=== PATIENT | female | born 1970 | race Caucasian/White ===

== ENCOUNTER 2020-05-19 14:01 | Observation (INO) ==
[2020-05-19] MEDS ORDERED: *HR* Promethazine 25 MG/ML VIAL IVP PRN (18:50)
[2020-05-19] MEDS ORDERED: Acetaminophen 325 MG TABLET PO PRN (18:50)
[2020-05-19 19:41] LABS: Hemoglobin 11.4 g/dL (11.5-15.4)
[2020-05-19 19:42] LABS: Hematocrit 38.1 % (35.3-44.9); INR 1.3; Mean Corpuscular HGB Conc 29.9 g/dL (31.6-35.5); Mean Corpuscular Volume 83.6 fL (83.0-100.0); Mean Platelet Volume 9.3 fL (9.4-12.4); Platelet Count 192 K/mcL (140-400); Prothrombin Time 14.6 Seconds (9.4-12.1); Red Blood Count 4.56 M/mcL (3.82-4.97); Red Cell Distribution Width 17.1 % (11.5-14.5)
[2020-05-19 19:57] LABS: BUN/Creatinine Ratio 17 (6-26); Blood Urea Nitrogen 12 mg/dL (6-20); Calcium 8.9 mg/dL (8.6-10.3); Carbon Dioxide 29 mEq/L (23-29); Chloride 105 mEq/L (98-107); Glucose 134 mg/dL (70-105); Osmolality,Calculated 298 (280-300); Potassium 3.9 mEq/L (3.5-5.1); Sodium 143 mEq/L (136-145); eGFR For African Americans > 60 (> 60); eGFR For Non-African Americans > 60 (> 60)
[2020-05-19] MEDS: Ipratropium/Albuterol Neb 3 ML IH SCH (20:05)
[2020-05-19] MEDS ORDERED: Perflutren Lipid Microsphere 1.3 ML in 0.9 % Sodium Chloride 8.7 ML IVP PRN (20:42)
[2020-05-19] MEDS ORDERED: Ipratropium/Albuterol Neb 3 ML IH PRN (20:51)
[2020-05-19] MEDS ORDERED: diazePAM 10 MG TABLET PO ONE (21:32)
[2020-05-19] MEDS ORDERED: *HR* OxyCODONE/APAP 10/325 TABLET PO ONE (21:32)
[2020-05-19] MEDS: lamoTRIgine 100 MG TABLET PO SCH (21:49)
[2020-05-19] MEDS: lisinopriL 20 MG TABLET PO SCH (21:49)
[2020-05-19] MEDS: Apixaban 5 MG TABLET PO SCH (21:49)
[2020-05-19] MEDS: DilTIAZem CD (24hr) 180 MG CAP.ER.24H PO SCH (21:50)
[2020-05-19] MEDS: Furosemide 40 MG/4 ML VIAL IVP SCH (21:50)
[2020-05-20] MEDS: Ipratropium/Albuterol Neb 3 ML IH SCH ×8 (00:13→23:50)
[2020-05-20] MEDS: Doxycycline 100 MG in 0.9 % Sodium Chloride Mini Bag 100 ML IVPB SCH ×2 (05:53→17:53)
[2020-05-20 05:59] LABS: Red Cell Distribution Width 16.9 % (11.5-14.5)
[2020-05-20 06:00] LABS: Hematocrit 37.5 % (35.3-44.9); Mean Corpuscular HGB Conc 29.3 g/dL (31.6-35.5); Mean Corpuscular Hemoglobin 24.7 pg (28.0-33.3); Mean Corpuscular Volume 84.3 fL (83.0-100.0); Mean Platelet Volume 9.6 fL (9.4-12.4); Platelet Count 197 K/mcL (140-400); Red Blood Count 4.45 M/mcL (3.82-4.97); White Blood Count 4.4 K/mcL (4.3-11.1)
[2020-05-20 06:25] LABS: BUN/Creatinine Ratio 20 (6-26); Blood Urea Nitrogen 14 mg/dL (6-20); Calcium 8.7 mg/dL (8.6-10.3); Carbon Dioxide 30 mEq/L (23-29); Chloride 104 mEq/L (98-107); Glucose 143 mg/dL (70-105); Osmolality,Calculated 293 (280-300); Potassium 3.8 mEq/L (3.5-5.1); Sodium 140 mEq/L (136-145); eGFR For African Americans > 60 (> 60); eGFR For Non-African Americans > 60 (> 60)
[2020-05-20] MEDS ORDERED: *HR* OxyCODONE/APAP 10/325 TABLET PO ONE (06:48)
[2020-05-20] MEDS ORDERED: diazePAM 5 MG TABLET PO ONE (06:48)
[2020-05-20] MEDS: Furosemide 40 MG/4 ML VIAL IVP SCH ×2 (08:25→21:33)
[2020-05-20] MEDS: MethylPREDNISolone 40 MG/ML VIAL IVP SCH ×2 (08:25)
[2020-05-20] MEDS: Apixaban 5 MG TABLET PO SCH ×2 (08:25→21:33)
[2020-05-20] MEDS: *HR* OxyCODONE/APAP 10/325 TABLET PO SCH ×2 (16:57→21:32)
[2020-05-20] MEDS: diazePAM 5 MG TABLET PO SCH ×2 (16:57→21:32)
[2020-05-20] MEDS ORDERED: diazePAM 10 MG TABLET PO SCH (21:00)
[2020-05-20] MEDS: lamoTRIgine 100 MG TABLET PO SCH (21:32)
[2020-05-20] MEDS: DilTIAZem CD (24hr) 180 MG CAP.ER.24H PO SCH (21:32)
[2020-05-20] MEDS: lisinopriL 20 MG TABLET PO SCH (21:33)
[2020-05-21] MEDS: Ipratropium/Albuterol Neb 3 ML IH SCH ×3 (03:44→11:20)
[2020-05-21 05:54] LABS: Hemoglobin 11.1 g/dL (11.5-15.4); Immature Granulocytes % 0.6 % (0-4)
[2020-05-21 05:55] LABS: Basophils % 0.2 %; Hematocrit 40.1 % (35.3-44.9); Lymphocytes # 2.2 K/mcL (0.6-4.6); Lymphocytes % 21.8 %; Mean Corpuscular HGB Conc 27.7 g/dL (31.6-35.5); Mean Corpuscular Hemoglobin 24.1 pg (28.0-33.3); Mean Corpuscular Volume 87.2 fL (83.0-100.0); Mean Platelet Volume 9.1 fL (9.4-12.4); Monocytes % 9.9 %; Neutrophils # 6.7 K/mcL (1.6-8.9); Platelet Count 226 K/mcL (140-400); Red Cell Distribution Width 17.2 % (11.5-14.5); Segmented Neutrophils % 67.5 %; White Blood Count 9.9 K/mcL (4.3-11.1)
[2020-05-21] MEDS: Doxycycline 100 MG in 0.9 % Sodium Chloride Mini Bag 100 ML IVPB SCH (05:56)
[2020-05-21 06:08] LABS: BUN/Creatinine Ratio 24 (6-26); Blood Urea Nitrogen 20 mg/dL (6-20); Calcium 8.9 mg/dL (8.6-10.3); Carbon Dioxide 34 mEq/L (23-29); Chloride 103 mEq/L (98-107); Glucose 113 mg/dL (70-105); Osmolality,Calculated 295 (280-300); Potassium 3.4 mEq/L (3.5-5.1); Sodium 141 mEq/L (136-145); eGFR For African Americans > 60 (> 60); eGFR For Non-African Americans > 60 (> 60)
[2020-05-21 07:18] VITALS: BP 127/89
[2020-05-21] MEDS: Furosemide 40 MG/4 ML VIAL IVP SCH (07:35)
[2020-05-21] MEDS: *HR* OxyCODONE/APAP 10/325 TABLET PO SCH ×2 (07:36→12:34)
[2020-05-21] MEDS: diazePAM 5 MG TABLET PO SCH ×3 (07:37→12:35)
[2020-05-21] MEDS: Apixaban 5 MG TABLET PO SCH (07:37)
[2020-05-21 08:07] LABS: Anisocytosis 1+ (Not Present); Hypochromasia Present (Not Present); Platelet Estimate Normal (Normal)
[2020-05-21] MEDS ORDERED: Folic Acid 1 MG TABLET PO SCH (09:00)
[2020-05-21] MEDS ORDERED: DILTIAZEM HCL 360 MG PO SCH (09:00)
[2020-05-21] MEDS ORDERED: Cyanocobalamin (B-12) 1,000 MCG TABLET PO SCH (09:00)
[2020-05-21] MEDS ORDERED: lamoTRIgine 100 MG TABLET PO SCH (09:00)
[2020-05-21] MEDS ORDERED: MethylPREDNISolone 40 MG/ML VIAL IVP SCH (09:00)
[2020-05-21] MEDS ORDERED: NON-FORMULARY MEDICATION 1 EACH EACH (Lisinopril [Zestril] 40 MG) PO SCH (09:00)
[2020-05-21] MEDS ORDERED: NON-FORMULARY MEDICATION 1 EACH EACH (Tiotropium Bromide [Spiriva Respimat] 1 PUFF) IH SCH (09:00)
[2020-05-21] MEDS ORDERED: *HR* Metoprolol 5 MG/5 ML VIAL IVP ONE (09:21)
[2020-05-21] MEDS ORDERED: Budesonide/Formoterol 160/4.5 1 PUFF INH IH SCH (10:00)
[2020-05-21] MEDS ORDERED: Potassium Chloride Elixir 20 MEQ/15 ML UDC PO ONE (10:15)
== END 2020-05-21 13:25 | disposition home or self-care (01) ==
LOC: CDU → SUATTDRO 16:02 → 3ANU 18:00
PROVIDERS: ADMIT Internal Medicine; ATTEND Internal Medicine

== ENCOUNTER 2021-03-21 13:32 | Observation (INO) ==
[2021-03-21] MEDS ORDERED: Ipratropium/Albuterol Neb 3 ML IH ONE (13:39)
[2021-03-21] MEDS ORDERED: methylPREDNISolone 125 MG/2 ML VIAL IVP ONE (13:39)
[2021-03-21] MEDS ORDERED: Furosemide 40 MG/4 ML VIAL IVP ONE (14:19)
[2021-03-21 14:32] LABS: Hemoglobin 10.2 g/dL (11.5-15.4); Mean Corpuscular HGB Conc 28.3 g/dL (31.6-35.5); Mean Platelet Volume 9.1 fL (9.4-12.4)
[2021-03-21 14:33] LABS: Eosinophils # 0.1 K/mcL (0.0-0.6); Mean Corpuscular Hemoglobin 23.6 pg (28.0-33.3); Mean Corpuscular Volume 83.3 fL (83.0-100.0); Neutrophils # 3.8 K/mcL (1.6-8.9); Platelet Count 185 K/mcL (140-400); Red Blood Count 4.32 M/mcL (3.82-4.97); Red Cell Distribution Width 17.3 % (11.5-14.5); White Blood Count 5.8 K/mcL (4.3-11.1)
[2021-03-21 14:50] LABS: Basophils # 0.1 K/mcL (0.0-0.2); Lymphocytes # 1.4 K/mcL (0.6-4.6); Monocytes # 0.5 K/mcL (0.0-1.3); Platelet Estimate Normal (Normal)
[2021-03-21 14:52] LABS: Anisocytosis 1+ (Not Present)
[2021-03-21 14:54] LABS: BUN/Creatinine Ratio 11 (6-26); Blood Urea Nitrogen 6 mg/dL (6-20); Calcium 8.8 mg/dL (8.6-10.3); Carbon Dioxide 35 mEq/L (23-29); Chloride 102 mEq/L (98-107); Glucose 98 mg/dL (70-105); Osmolality,Calculated 290 (280-300); Potassium 4.1 mEq/L (3.5-5.1); Sodium 141 mEq/L (136-145); eGFR For African Americans > 60 (> 60); eGFR For Non-African Americans > 60 (> 60)
[2021-03-21 15:31] LABS: Troponin I < 0.03 ng/mL (< 0.04)
[2021-03-21] MEDS ORDERED: Ondansetron 4 MG/2 ML VIAL IVP PRN (15:48)
[2021-03-21] MEDS ORDERED: Naloxone 0.4 MG/ML INJ IVP PRN (15:48)
[2021-03-21] MEDS ORDERED: Azithromycin 500 MG in 0.9 % Sodium Chloride 250 ML IVPB SCH (16:00)
[2021-03-21] MEDS: Ipratropium/Albuterol Neb 3 ML IH SCH ×3 (16:34→23:55)
[2021-03-21 16:43] LABS: ABG Base Excess 8 mEq/L (-2 to 3); ABG HCO3 37 mEq/L (21-27); ABG Oxygen Saturation 88 % (95-98); ABG PCO2 70 mmHg (35-45); ABG PH 7.33 pH Units (7.32-7.45); ABG PO2 61 mmHg (85-104); ABG TCO2 39 mEq/L (20-26)
[2021-03-21] MEDS: MethylPREDNISolone 40 MG/ML VIAL IVP SCH (18:10)
[2021-03-21] MEDS: Budesonide/Formoterol 160/4.5 1 PUFF INH IH SCH (19:57)
[2021-03-21] MEDS: Apixaban 5 MG TABLET PO SCH (21:31)
[2021-03-21] MEDS: diazePAM 5 MG TABLET PO SCH (21:32)
[2021-03-21] MEDS: Furosemide 40 MG/4 ML VIAL IVP SCH (21:32)
[2021-03-21] MEDS: diazePAM 10 MG TABLET PO SCH (21:32)
[2021-03-21] MEDS ORDERED: *HR* OxyCODONE/APAP 10/325 TABLET PO PRN (22:03)
[2021-03-22] MEDS: Ipratropium/Albuterol Neb 3 ML IH SCH ×6 (04:58→23:35)
[2021-03-22 06:32] LABS: Hematocrit 33.9 % (35.3-44.9); Immature Granulocytes % 0.5 % (0-4); Lymphocytes # 0.4 K/mcL (0.6-4.6); Lymphocytes % 10.5 %; Mean Corpuscular HGB Conc 29.5 g/dL (31.6-35.5); Mean Corpuscular Hemoglobin 23.8 pg (28.0-33.3); Mean Corpuscular Volume 80.7 fL (83.0-100.0); Mean Platelet Volume 9.4 fL (9.4-12.4); Monocytes # 0.1 K/mcL (0.0-1.3); Monocytes % 2.2 %; Neutrophils # 3.6 K/mcL (1.6-8.9); Platelet Count 170 K/mcL (140-400); Red Cell Distribution Width 17.2 % (11.5-14.5); Segmented Neutrophils % 86.8 %; White Blood Count 4.1 K/mcL (4.3-11.1)
[2021-03-22 06:38] LABS: INR 1.4
[2021-03-22 06:39] LABS: Activated Partial Thrombo Time 33.4 Seconds (26.0-36.0)
[2021-03-22 06:46] LABS: BUN/Creatinine Ratio 19 (6-26); Blood Urea Nitrogen 11 mg/dL (6-20); Calcium 8.7 mg/dL (8.6-10.3); Carbon Dioxide 36 mEq/L (23-29); Chloride 99 mEq/L (98-107); Glucose 136 mg/dL (70-105); Magnesium 2.1 mg/dL (1.6-2.6); Osmolality,Calculated 291 (280-300); Phosphorous 3.9 mg/dL (2.7-4.5); Sodium 140 mEq/L (136-145); eGFR For African Americans > 60 (> 60); eGFR For Non-African Americans > 60 (> 60)
[2021-03-22] MEDS: MethylPREDNISolone 40 MG/ML VIAL IVP SCH ×2 (06:54→17:36)
[2021-03-22] MEDS: Budesonide/Formoterol 160/4.5 1 PUFF INH IH SCH ×2 (07:33→20:25)
[2021-03-22] MEDS: DilTIAZem CD (24hr) 180 MG CAP.ER.24H PO SCH (09:12)
[2021-03-22] MEDS: Famotidine 20 MG TABLET PO SCH (09:12)
[2021-03-22] MEDS: Furosemide 40 MG/4 ML VIAL IVP SCH ×2 (09:13→20:34)
[2021-03-22] MEDS: Cyanocobalamin (B-12) 1,000 MCG TABLET PO SCH (09:13)
[2021-03-22] MEDS: Folic Acid 1 MG TABLET PO SCH (09:13)
[2021-03-22] MEDS: lamoTRIgine 100 MG TABLET PO SCH (09:13)
[2021-03-22] MEDS: Apixaban 5 MG TABLET PO SCH ×2 (09:13→20:34)
[2021-03-22] MEDS: diazePAM 5 MG TABLET PO SCH ×3 (09:13→20:34)
[2021-03-22] MEDS ORDERED: *HR* Metoprolol 5 MG/5 ML VIAL IVP ONE (10:22)
[2021-03-22] MEDS ORDERED: *HR* Metoprolol 5 MG/5 ML VIAL IVP PRN (10:22)
[2021-03-22] MEDS: *HR* OxyCODONE/APAP 10/325 TABLET PO PRN ×2 (10:57→17:36)
[2021-03-22] MEDS: Metoprolol XL (24 HR) Succ 50 MG TAB.ER.24H PO SCH ×2 (12:34→20:34)
[2021-03-22 14:59] LABS: Adenovirus Not Detected (Not Detect); Bordetella Pertussis Not Detected (Not Detect); Chlamydophila pneumoniae Not Detected (Not Detect); Coronavirus 229E Not Detected (Not Detect); Coronavirus HKU1 Not Detected (Not Detect); Coronavirus NL63 Not Detected (Not Detect); Coronavirus OC43 Not Detected (Not Detect); Human Metapneumovirus Not Detected (Not Detect); Human Rhinovirus/Enterovirus Not Detected (Not Detect); Influenza A Subtype 2009 H1 Not Detected (Not Detect); Influenza B Not Detected (Not Detect); Mycoplasma pneumoniae Not Detected (Not Detect); Parainfluenza Virus 1 Not Detected (Not Detect); Parainfluenza Virus 2 Not Detected (Not Detect); Parainfluenza Virus 3 Not Detected (Not Detect); Parainfluenza Virus 4 Not Detected (Not Detect); Respiratory Syncytial Virus Not Detected (Not Detect); SARS-CoV-2 Not Detected (Not Detect)
[2021-03-22] MEDS: Azithromycin 250 MG TABLET PO SCH (15:30)
[2021-03-22] MEDS: diazePAM 10 MG TABLET PO SCH (20:33)
[2021-03-23] MEDS: Ipratropium/Albuterol Neb 3 ML IH SCH ×3 (03:05→11:34)
[2021-03-23] MEDS: MethylPREDNISolone 40 MG/ML VIAL IVP SCH (06:04)
[2021-03-23] MEDS: *HR* OxyCODONE/APAP 10/325 TABLET PO PRN ×2 (06:10→15:10)
[2021-03-23] MEDS: Budesonide/Formoterol 160/4.5 1 PUFF INH IH SCH (07:32)
[2021-03-23 07:35] VITALS: BP 122/79; PULSE 96; TEMP 98.6
[2021-03-23 07:50] LABS: Immature Granulocytes % 0.4 % (0-4)
[2021-03-23 07:52] LABS: Hematocrit 33.5 % (35.3-44.9); Hemoglobin 9.8 g/dL (11.5-15.4); Lymphocytes # 0.7 K/mcL (0.6-4.6); Lymphocytes % 12.2 %; Mean Corpuscular HGB Conc 29.3 g/dL (31.6-35.5); Mean Corpuscular Hemoglobin 23.9 pg (28.0-33.3); Mean Corpuscular Volume 81.7 fL (83.0-100.0); Mean Platelet Volume 9.8 fL (9.4-12.4); Monocytes # 0.2 K/mcL (0.0-1.3); Monocytes % 4.3 %; Neutrophils # 4.5 K/mcL (1.6-8.9); Platelet Count 178 K/mcL (140-400); Red Cell Distribution Width 17.1 % (11.5-14.5); Segmented Neutrophils % 83.1 %; White Blood Count 5.4 K/mcL (4.3-11.1)
[2021-03-23 08:06] LABS: BUN/Creatinine Ratio 28 (6-26); Blood Urea Nitrogen 22 mg/dL (6-20); Calcium 9.2 mg/dL (8.6-10.3); Carbon Dioxide 39 mEq/L (23-29); Chloride 96 mEq/L (98-107); Glucose 114 mg/dL (70-105); Magnesium 2.2 mg/dL (1.6-2.6); Osmolality,Calculated 290 (280-300); Potassium 4.2 mEq/L (3.5-5.1); Sodium 138 mEq/L (136-145); eGFR For African Americans > 60 (> 60); eGFR For Non-African Americans > 60 (> 60)
[2021-03-23 08:27] LABS: Hypochromasia Present (Not Present); Platelet Estimate Normal (Normal)
[2021-03-23] MEDS: Famotidine 20 MG TABLET PO SCH (09:41)
[2021-03-23] MEDS: diazePAM 5 MG TABLET PO SCH ×2 (09:41→15:10)
[2021-03-23] MEDS: lamoTRIgine 100 MG TABLET PO SCH (09:41)
[2021-03-23] MEDS: DilTIAZem CD (24hr) 180 MG CAP.ER.24H PO SCH (09:41)
[2021-03-23] MEDS: Folic Acid 1 MG TABLET PO SCH (09:41)
[2021-03-23] MEDS: Metoprolol XL (24 HR) Succ 50 MG TAB.ER.24H PO SCH (09:42)
[2021-03-23] MEDS: Cyanocobalamin (B-12) 1,000 MCG TABLET PO SCH (09:42)
[2021-03-23] MEDS: Apixaban 5 MG TABLET PO SCH (09:42)
[2021-03-23] MEDS: Furosemide 40 MG/4 ML VIAL IVP SCH (09:43)
[2021-03-23 14:50] VITALS: O2SAT 93
[2021-03-23] MEDS: Azithromycin 250 MG TABLET PO SCH (15:10)
== END 2021-03-23 16:30 | disposition home or self-care (01) ==
LOC: 3ANU 13:32 → EMEROOARM 13:32 → SUATTDRO 16:09 → 3ANU 17:03
PROVIDERS: ADMIT Internal Medicine; ATTEND Internal Medicine

== ENCOUNTER 2021-04-05 08:29 | Inpatient (IN) ==
[2021-04-05] MEDS ORDERED: Ipratropium/Albuterol Neb 3 ML IH ONE (09:48)
[2021-04-05] MEDS ORDERED: methylPREDNISolone 125 MG/2 ML VIAL IVP ONE (09:48)
[2021-04-05] MEDS ORDERED: Furosemide 40 MG/4 ML VIAL IVP ONE (10:46)
[2021-04-05 10:53] LABS: Hematocrit 43.3 % (35.3-44.9); Mean Corpuscular Hemoglobin 23.6 pg (28.0-33.3); Mean Corpuscular Volume 85.1 fL (83.0-100.0); Red Blood Count 5.09 M/mcL (3.82-4.97); White Blood Count 13.3 K/mcL (4.3-11.1)
[2021-04-05 10:54] LABS: Basophils % 0.2 %; Eosinophils % 0.1 %; Lymphocytes # 0.4 K/mcL (0.6-4.6); Lymphocytes % 2.8 %; Mean Corpuscular HGB Conc 27.7 g/dL (31.6-35.5); Mean Platelet Volume 8.9 fL (9.4-12.4); Monocytes # 0.9 K/mcL (0.0-1.3); Monocytes % 6.9 %; Neutrophils # 11.8 K/mcL (1.6-8.9); Platelet Count 319 K/mcL (140-400); Red Cell Distribution Width 17.2 % (11.5-14.5)
[2021-04-05 10:54] LABS: ABG Base Excess 8 mEq/L (-2 to 3); ABG HCO3 41 mEq/L (21-27); ABG Oxygen Saturation 85 % (95-98); ABG PCO2 104 mmHg (35-45); ABG PO2 65 mmHg (85-104); ABG TCO2 44 mEq/L (20-26); Blood Gas Modality ST; Blood Gas Pressure Support 6 cm H2O
[2021-04-05 11:02] LABS: INR 1.7; Prothrombin Time 18.9 Seconds (9.4-12.1)
[2021-04-05 11:11] LABS: BUN/Creatinine Ratio 31 (6-26); Blood Urea Nitrogen 19 mg/dL (6-20); Carbon Dioxide 35 mEq/L (23-29); Chloride 101 mEq/L (98-107); Glucose 125 mg/dL (70-105); Osmolality,Calculated 298 (280-300); Potassium 4.3 mEq/L (3.5-5.1); Sodium 142 mEq/L (136-145); eGFR For African Americans > 60 (> 60); eGFR For Non-African Americans > 60 (> 60)
[2021-04-05 11:24] LABS: Adenovirus Not Detected (Not Detect); Bordetella Pertussis Not Detected (Not Detect); Chlamydophila pneumoniae Not Detected (Not Detect); Coronavirus 229E Not Detected (Not Detect); Coronavirus HKU1 Not Detected (Not Detect); Coronavirus NL63 Not Detected (Not Detect); Coronavirus OC43 Not Detected (Not Detect); Human Metapneumovirus Not Detected (Not Detect); Human Rhinovirus/Enterovirus Not Detected (Not Detect); Influenza A Subtype 2009 H1 Not Detected (Not Detect); Influenza B Not Detected (Not Detect); Mycoplasma pneumoniae Not Detected (Not Detect); Parainfluenza Virus 1 Not Detected (Not Detect); Parainfluenza Virus 2 Not Detected (Not Detect); Parainfluenza Virus 3 Not Detected (Not Detect); Parainfluenza Virus 4 Not Detected (Not Detect); Respiratory Syncytial Virus Not Detected (Not Detect); SARS-CoV-2 Not Detected (Not Detect)
[2021-04-05] MEDS ORDERED: Ondansetron 4 MG/2 ML VIAL IVP PRN (12:00)
[2021-04-05] MEDS ORDERED: Naloxone 0.4 MG/ML INJ IVP PRN (12:00)
[2021-04-05] MEDS ORDERED: Perflutren Lipid Microsphere 1.3 ML in 0.9 % Sodium Chloride 8.7 ML IVP PRN (12:05)
[2021-04-05] MEDS: Azithromycin 500 MG in 0.9 % Sodium Chloride 250 ML IVPB SCH (13:52)
[2021-04-05] MEDS: Metoprolol XL (24 HR) Succ 50 MG TAB.ER.24H PO SCH ×2 (13:53→22:18)
[2021-04-05 14:38] LABS: ABG Base Excess 7 mEq/L (-2 to 3); ABG HCO3 36 mEq/L (21-27); ABG Oxygen Saturation 92 % (95-98); ABG PCO2 75 mmHg (35-45); ABG PH 7.29 pH Units (7.32-7.45); ABG PO2 76 mmHg (85-104); ABG TCO2 38 mEq/L (20-26); Blood Gas Modality AVAPS; Blood Gas VT 500 cc
[2021-04-05 14:42] LABS: Anisocytosis 1+ (Not Present); Hypochromasia Present (Not Present); Platelet Estimate Normal (Normal); Poikilocytosis 1+ (Not Present)
[2021-04-05] MEDS: Piperacillin/Tazobactam 3.375 GM in 0.9 % Sodium Chloride Mini Bag 100 ML IVPB SCH (15:24)
[2021-04-05] MEDS: Albuterol 2.5 MG/3 ML NEBULIZER IH SCH ×3 (16:16→23:47)
[2021-04-05] MEDS: Furosemide 40 MG/4 ML VIAL IVP SCH (22:18)
[2021-04-05] MEDS: MethylPREDNISolone 40 MG/ML VIAL IVP SCH (22:19)
[2021-04-05] MEDS: Nystatin POWDER 30 GM BOTTLE TP SCH (22:19)
[2021-04-06] MEDS: Piperacillin/Tazobactam 3.375 GM in 0.9 % Sodium Chloride Mini Bag 100 ML IVPB SCH ×3 (00:51→18:01)
[2021-04-06 03:33] LABS: BUN/Creatinine Ratio 32 (6-26); Blood Urea Nitrogen 19 mg/dL (6-20); Carbon Dioxide 35 mEq/L (23-29); Chloride 100 mEq/L (98-107); Glucose 130 mg/dL (70-105); Osmolality,Calculated 296 (280-300); Potassium 3.8 mEq/L (3.5-5.1); Sodium 141 mEq/L (136-145); eGFR For African Americans > 60 (> 60); eGFR For Non-African Americans > 60 (> 60)
[2021-04-06 03:39] LABS: Basophils % 0.1 %; Hematocrit 39.7 % (35.3-44.9); Hemoglobin 11.2 g/dL (11.5-15.4); Immature Granulocytes % 0.4 % (0-4); Lymphocytes # 0.4 K/mcL (0.6-4.6); Lymphocytes % 5.1 %; Mean Corpuscular HGB Conc 28.2 g/dL (31.6-35.5); Monocytes # 0.3 K/mcL (0.0-1.3); Monocytes % 3.5 %; Platelet Count 218 K/mcL (140-400); Red Blood Count 4.67 M/mcL (3.82-4.97); Red Cell Distribution Width 17.3 % (11.5-14.5); Segmented Neutrophils % 90.9 %; White Blood Count 7.7 K/mcL (4.3-11.1)
[2021-04-06] MEDS: Albuterol 2.5 MG/3 ML NEBULIZER IH SCH ×5 (04:13→20:29)
[2021-04-06 04:28] LABS: ABG Base Excess 10 mEq/L (-2 to 3); ABG HCO3 38 mEq/L (21-27); ABG Oxygen Saturation 97 % (95-98); ABG PCO2 70 mmHg (35-45); ABG PH 7.34 pH Units (7.32-7.45); ABG PO2 103 mmHg (85-104); ABG TCO2 40 mEq/L (20-26); Blood Gas Modality AVAPS; Blood Gas VT 500 cc
[2021-04-06 05:05] LABS: Hypochromasia Present (Not Present); Platelet Estimate Normal (Normal)
[2021-04-06] MEDS: Nystatin POWDER 30 GM BOTTLE TP SCH ×2 (08:46→20:21)
[2021-04-06] MEDS: Nicotine 14 MG PATCH.TD24 TD SCH (08:47)
[2021-04-06] MEDS: Metoprolol XL (24 HR) Succ 50 MG TAB.ER.24H PO SCH ×2 (08:47→20:21)
[2021-04-06] MEDS: MethylPREDNISolone 40 MG/ML VIAL IVP SCH ×2 (10:51→20:21)
[2021-04-06] MEDS: Furosemide 40 MG/4 ML VIAL IVP SCH ×2 (10:53→20:21)
[2021-04-06 11:52] LABS: ABG Base Excess 12 mEq/L (-2 to 3); ABG HCO3 42 mEq/L (21-27); ABG Oxygen Saturation 95 % (95-98); ABG PCO2 86 mmHg (35-45); ABG PO2 89 mmHg (85-104); ABG TCO2 45 mEq/L (20-26); Blood Gas VT 500 cc
[2021-04-06] MEDS: Azithromycin 500 MG in 0.9 % Sodium Chloride 250 ML IVPB SCH (13:26)
[2021-04-06] MEDS: diazePAM 5 MG TABLET PO SCH ×2 (16:24→20:21)
[2021-04-06] MEDS: Erythromycin OPTH Oint BOTH EYES SCH ×2 (16:42→20:21)
[2021-04-06] MEDS: Apixaban 5 MG TABLET PO SCH (20:21)
[2021-04-06] MEDS: Budesonide/Formoterol 160/4.5 1 PUFF INH IH SCH (20:29)
[2021-04-07] MEDS: Albuterol 2.5 MG/3 ML NEBULIZER IH SCH ×7 (00:06→23:41)
[2021-04-07] MEDS: Piperacillin/Tazobactam 3.375 GM in 0.9 % Sodium Chloride Mini Bag 100 ML IVPB SCH (00:42)
[2021-04-07 02:58] LABS: Basophils % 0.2 %; Hematocrit 37.3 % (35.3-44.9); Hemoglobin 10.6 g/dL (11.5-15.4); Immature Granulocytes % 0.5 % (0-4); Lymphocytes # 0.4 K/mcL (0.6-4.6); Lymphocytes % 7.1 %; Mean Corpuscular HGB Conc 28.4 g/dL (31.6-35.5); Mean Corpuscular Hemoglobin 23.3 pg (28.0-33.3); Mean Platelet Volume 9.2 fL (9.4-12.4); Monocytes # 0.2 K/mcL (0.0-1.3); Monocytes % 3.5 %; Neutrophils # 5.4 K/mcL (1.6-8.9); Nucleated Red Blood Cells 0.3 /100 WBC (0); Platelet Count 241 K/mcL (140-400); Red Blood Count 4.55 M/mcL (3.82-4.97); Segmented Neutrophils % 88.7 %; White Blood Count 6.1 K/mcL (4.3-11.1)
[2021-04-07 03:06] LABS: BUN/Creatinine Ratio 40 (6-26); Blood Urea Nitrogen 24 mg/dL (6-20); Carbon Dioxide 38 mEq/L (23-29); Chloride 97 mEq/L (98-107); Glucose 123 mg/dL (70-105); Osmolality,Calculated 301 (280-300); Potassium 3.7 mEq/L (3.5-5.1); Sodium 143 mEq/L (136-145); eGFR For African Americans > 60 (> 60); eGFR For Non-African Americans > 60 (> 60)
[2021-04-07 03:18] LABS: Anisocytosis 1+ (Not Present); Hypochromasia Present (Not Present)
[2021-04-07 03:19] LABS: Polychromasia 1+ (Not Present)
[2021-04-07 03:21] LABS: Platelet Estimate Normal (Normal)
[2021-04-07] MEDS: Budesonide/Formoterol 160/4.5 1 PUFF INH IH SCH ×2 (08:09→20:56)
[2021-04-07] MEDS: MethylPREDNISolone 40 MG/ML VIAL IVP SCH (09:40)
[2021-04-07] MEDS: Furosemide 40 MG/4 ML VIAL IVP SCH ×2 (09:40→20:51)
[2021-04-07] MEDS: Apixaban 5 MG TABLET PO SCH ×2 (09:40→20:51)
[2021-04-07] MEDS: lisinopriL 20 MG TABLET PO SCH (09:41)
[2021-04-07] MEDS: Famotidine 20 MG TABLET PO SCH (09:41)
[2021-04-07] MEDS: Metoprolol XL (24 HR) Succ 50 MG TAB.ER.24H PO SCH ×2 (09:42→20:50)
[2021-04-07] MEDS: diazePAM 5 MG TABLET PO SCH ×3 (09:42→20:50)
[2021-04-07] MEDS: Nicotine 14 MG PATCH.TD24 TD SCH (09:42)
[2021-04-07] MEDS: Nystatin POWDER 30 GM BOTTLE TP SCH ×2 (09:43→20:52)
[2021-04-07] MEDS: Erythromycin OPTH Oint BOTH EYES SCH ×3 (10:25→20:52)
[2021-04-07] MEDS ORDERED: Metoprolol XL (24 HR) Succ 25 MG TAB.ER.24H PO ONE (11:45)
[2021-04-07] MEDS: Azithromycin 500 MG in 0.9 % Sodium Chloride 250 ML IVPB SCH (12:44)
[2021-04-07] MEDS: Acetylcysteine 10% 2 ML INHSOL IH SCH ×3 (12:44→23:41)
[2021-04-07] MEDS: predniSONE 20 MG TABLET PO SCH (16:56)
[2021-04-08] MEDS: Albuterol 2.5 MG/3 ML NEBULIZER IH SCH ×5 (04:12→21:27)
[2021-04-08] MEDS: Acetylcysteine 10% 2 ML INHSOL IH SCH ×4 (04:13→21:27)
[2021-04-08 06:18] LABS: Basophils % 0.2 %; Hematocrit 38.9 % (35.3-44.9); Hemoglobin 11.3 g/dL (11.5-15.4); Immature Granulocytes % 0.5 % (0-4); Lymphocytes # 0.7 K/mcL (0.6-4.6); Lymphocytes % 11.6 %; Mean Corpuscular Hemoglobin 24.1 pg (28.0-33.3); Mean Corpuscular Volume 82.9 fL (83.0-100.0); Mean Platelet Volume 9.3 fL (9.4-12.4); Monocytes # 0.4 K/mcL (0.0-1.3); Monocytes % 6.9 %; Neutrophils # 4.9 K/mcL (1.6-8.9); Platelet Count 243 K/mcL (140-400); Red Blood Count 4.69 M/mcL (3.82-4.97); Red Cell Distribution Width 16.6 % (11.5-14.5); Segmented Neutrophils % 80.8 %; White Blood Count 6.1 K/mcL (4.3-11.1)
[2021-04-08 06:46] LABS: BUN/Creatinine Ratio 43 (6-26); Blood Urea Nitrogen 27 mg/dL (6-20); Calcium 8.9 mg/dL (8.6-10.3); Carbon Dioxide 42 mEq/L (23-29); Chloride 93 mEq/L (98-107); Glucose 111 mg/dL (70-105); Osmolality,Calculated 294 (280-300); Potassium 3.6 mEq/L (3.5-5.1); Sodium 139 mEq/L (136-145); eGFR For African Americans > 60 (> 60); eGFR For Non-African Americans > 60 (> 60)
[2021-04-08] MEDS: Metoprolol XL (24 HR) Succ 50 MG TAB.ER.24H PO SCH ×2 (08:34→20:38)
[2021-04-08] MEDS: Famotidine 20 MG TABLET PO SCH (08:34)
[2021-04-08] MEDS: Nicotine 14 MG PATCH.TD24 TD SCH (08:34)
[2021-04-08] MEDS: Furosemide 40 MG/4 ML VIAL IVP SCH ×2 (08:34→20:39)
[2021-04-08] MEDS: predniSONE 20 MG TABLET PO SCH (08:34)
[2021-04-08] MEDS: Apixaban 5 MG TABLET PO SCH ×2 (08:35→20:38)
[2021-04-08] MEDS: lamoTRIgine 100 MG TABLET PO SCH (08:35)
[2021-04-08] MEDS: Erythromycin OPTH Oint BOTH EYES SCH ×3 (08:35→20:38)
[2021-04-08] MEDS: diazePAM 5 MG TABLET PO SCH ×3 (08:35→20:38)
[2021-04-08] MEDS: lisinopriL 20 MG TABLET PO SCH (08:35)
[2021-04-08 08:36] LABS: ABG Base Excess 18 mEq/L (-2 to 3); ABG HCO3 49 mEq/L (21-27); ABG Oxygen Saturation 94 % (95-98); ABG PCO2 92 mmHg (35-45); ABG PH 7.34 pH Units (7.32-7.45); ABG PO2 81 mmHg (85-104); ABG TCO2 > 50 mEq/L (20-26)
[2021-04-08] MEDS: Nystatin POWDER 30 GM BOTTLE TP SCH ×2 (08:36→20:39)
[2021-04-08] MEDS ORDERED: Acetaminophen 325 MG TABLET PO PRN (11:53)
[2021-04-08] MEDS: Budesonide/Formoterol 160/4.5 1 PUFF INH IH SCH ×2 (12:17→21:28)
[2021-04-08] MEDS: Azithromycin 250 MG TABLET PO SCH (13:17)
[2021-04-09] MEDS: Albuterol 2.5 MG/3 ML NEBULIZER IH SCH ×6 (00:41→20:50)
[2021-04-09] MEDS: Acetylcysteine 10% 2 ML INHSOL IH SCH ×4 (04:10→20:50)
[2021-04-09 06:21] LABS: Hemoglobin 11.4 g/dL (11.5-15.4); Mean Corpuscular HGB Conc 27.8 g/dL (31.6-35.5); Mean Corpuscular Hemoglobin 23.4 pg (28.0-33.3); Mean Corpuscular Volume 84.2 fL (83.0-100.0); Mean Platelet Volume 8.7 fL (9.4-12.4); Platelet Count 203 K/mcL (140-400); Red Blood Count 4.87 M/mcL (3.82-4.97); Red Cell Distribution Width 16.2 % (11.5-14.5); White Blood Count 4.8 K/mcL (4.3-11.1)
[2021-04-09 06:23] LABS: VBG HCO3 47 mEq/L (21-27); VBG PCO2 95 mmHg (41-51); VBG PH 7.31 pH Units (7.32-7.42); VBG PO2 59 mmHg (25-50)
[2021-04-09 06:46] LABS: BUN/Creatinine Ratio 28 (6-26); Blood Urea Nitrogen 18 mg/dL (6-20); Calcium 8.7 mg/dL (8.6-10.3); Carbon Dioxide > 45 mEq/L (23-29); Chloride 92 mEq/L (98-107); Glucose 86 mg/dL (70-105); Osmolality,Calculated 293 (280-300); Potassium 3.4 mEq/L (3.5-5.1); Sodium 141 mEq/L (136-145); eGFR For African Americans > 60 (> 60); eGFR For Non-African Americans > 60 (> 60)
[2021-04-09] MEDS: Nicotine 14 MG PATCH.TD24 TD SCH (07:10)
[2021-04-09] MEDS: Furosemide 40 MG/4 ML VIAL IVP SCH (07:28)
[2021-04-09] MEDS: Apixaban 5 MG TABLET PO SCH ×2 (07:31→22:17)
[2021-04-09] MEDS: Erythromycin OPTH Oint BOTH EYES SCH ×3 (07:31→22:18)
[2021-04-09] MEDS: predniSONE 20 MG TABLET PO SCH (07:31)
[2021-04-09] MEDS: lamoTRIgine 100 MG TABLET PO SCH (07:31)
[2021-04-09] MEDS: diazePAM 5 MG TABLET PO SCH ×3 (07:32→22:18)
[2021-04-09] MEDS: lisinopriL 20 MG TABLET PO SCH (07:32)
[2021-04-09] MEDS: Metoprolol XL (24 HR) Succ 50 MG TAB.ER.24H PO SCH ×2 (07:32→22:17)
[2021-04-09] MEDS: Famotidine 20 MG TABLET PO SCH (07:33)
[2021-04-09] MEDS: Nystatin POWDER 30 GM BOTTLE TP SCH ×2 (07:33→22:20)
[2021-04-09] MEDS ORDERED: acetaZOLAMIDE 250 MG in Water for inj. (sterile) 2.5 ML IVP ONE (09:04)
[2021-04-09] MEDS: Budesonide/Formoterol 160/4.5 1 PUFF INH IH SCH ×2 (09:15→20:50)
[2021-04-09] MEDS: Azithromycin 250 MG TABLET PO SCH (12:21)
[2021-04-10] MEDS: Albuterol 2.5 MG/3 ML NEBULIZER IH SCH ×4 (00:14→11:39)
[2021-04-10] MEDS: Metoprolol XL (24 HR) Succ 50 MG TAB.ER.24H PO SCH (07:22)
[2021-04-10] MEDS: lisinopriL 20 MG TABLET PO SCH (07:22)
[2021-04-10] MEDS: Apixaban 5 MG TABLET PO SCH (07:23)
[2021-04-10] MEDS: Famotidine 20 MG TABLET PO SCH (07:23)
[2021-04-10] MEDS: predniSONE 20 MG TABLET PO SCH (07:23)
[2021-04-10] MEDS: Erythromycin OPTH Oint BOTH EYES SCH (07:24)
[2021-04-10] MEDS: Nicotine 14 MG PATCH.TD24 TD SCH (07:25)
[2021-04-10] MEDS: diazePAM 5 MG TABLET PO SCH (07:25)
[2021-04-10] MEDS: Nystatin POWDER 30 GM BOTTLE TP SCH (07:25)
[2021-04-10 07:28] LABS: Red Cell Distribution Width 16.8 % (11.5-14.5)
[2021-04-10] MEDS: Acetylcysteine 10% 2 ML INHSOL IH SCH ×2 (07:29→07:36)
[2021-04-10 07:30] LABS: Hematocrit 41.2 % (35.3-44.9); Hemoglobin 11.5 g/dL (11.5-15.4); Mean Corpuscular HGB Conc 27.9 g/dL (31.6-35.5); Mean Corpuscular Hemoglobin 24.3 pg (28.0-33.3); Mean Corpuscular Volume 87.1 fL (83.0-100.0); Mean Platelet Volume 9.2 fL (9.4-12.4); Platelet Count 162 K/mcL (140-400); Red Blood Count 4.73 M/mcL (3.82-4.97); White Blood Count 5.2 K/mcL (4.3-11.1)
[2021-04-10] MEDS: Budesonide/Formoterol 160/4.5 1 PUFF INH IH SCH (07:38)
[2021-04-10 07:52] LABS: Blood Urea Nitrogen 21 mg/dL (6-20); Carbon Dioxide 42 mEq/L (23-29); Chloride 95 mEq/L (98-107); Potassium 3.5 mEq/L (3.5-5.1); Sodium 140 mEq/L (136-145)
[2021-04-10 07:54] LABS: Calcium 8.9 mg/dL (8.6-10.3); Glucose 81 mg/dL (70-105); Osmolality,Calculated 292 (280-300)
[2021-04-10] MEDS: lamoTRIgine 100 MG TABLET PO SCH (09:28)
[2021-04-10 11:13] VITALS: BP 115/82; PULSE 93; TEMP 97.5; O2SAT 95
[2021-04-10 13:25] LABS: BUN/Creatinine Ratio 33 (6-26); eGFR For African Americans > 60 (> 60); eGFR For Non-African Americans > 60 (> 60)
== END 2021-04-10 14:00 | disposition home health service (06) | DRG 194 ==
LOC: EMEROOARM 08:29 → 2NENU 13:19 → SUATTDRO 13:19 → 2NENU 14:11 → CDU 04-10 03:34
PROVIDERS: ADMIT Student in an Organized Health Care Education/Training Program; ATTEND Student in an Organized Health Care Education/Training Program

== ENCOUNTER 2021-07-23 15:16 | Inpatient (IN) ==
[2021-07-23 16:20] LABS: Immature Granulocytes % 0.3 % (0-4); Mean Corpuscular HGB Conc 28.5 g/dL (31.6-35.5); Red Cell Distribution Width 15.7 % (11.5-14.5)
[2021-07-23 16:21] LABS: Basophils # 0.1 K/mcL (0.0-0.2); Basophils % 0.9 %; Eosinophils # 0.3 K/mcL (0.0-0.6); Eosinophils % 5.6 %; Hemoglobin 11.4 g/dL (11.5-15.4); Lymphocytes # 0.9 K/mcL (0.6-4.6); Lymphocytes % 16.1 %; Mean Corpuscular Hemoglobin 24.5 pg (28.0-33.3); Mean Corpuscular Volume 85.8 fL (83.0-100.0); Mean Platelet Volume 9.7 fL (9.4-12.4); Monocytes # 0.6 K/mcL (0.0-1.3); Monocytes % 10.2 %; Neutrophils # 3.9 K/mcL (1.6-8.9); Platelet Count 196 K/mcL (140-400); Red Blood Count 4.66 M/mcL (3.82-4.97); Segmented Neutrophils % 66.9 %; White Blood Count 5.8 K/mcL (4.3-11.1)
[2021-07-23] MEDS ORDERED: *HR* Metoprolol 5 MG/5 ML VIAL IVP ONE (16:28)
[2021-07-23 16:35] LABS: Bilirubin,Urine Negative (Negative); Blood,Urine Negative (Negative); Clarity,Urine Clear (Clear); Color,Urine Light-Yellow (Yellow); Glucose,Urine (UA) Normal (Normal); Ketones,Urine Negative (Negative); Leukocyte Esterase,Urine Negative (Negative); Nitrite,Urine Negative (Negative); Protein,Urine Negative (Neg-Trace); Specific Gravity,Urine 1.012 (1.010-1.025); Urobilinogen,Urine Normal (Normal)
[2021-07-23 16:42] LABS: Alanine Aminotransferase 13 Units/L (7-52); Albumin 3.9 g/dL (3.5-5.7); Albumin/Globulin Ratio 1.4 (1.1-2.2); Alkaline Phosphatase 97 Units/L (34-104); Aspartate Amino Transferase 10 Units/L (13-39); BUN/Creatinine Ratio 13 (6-26); Bilirubin,Direct 0.1 mg/dL (0.0-0.2); Bilirubin,Indirect 0.4 mg/dL (0.0-1.0); Bilirubin,Total 0.5 mg/dL (0.3-1.0); Blood Urea Nitrogen 10 mg/dL (6-20); Calcium 9.1 mg/dL (8.6-10.3); Carbon Dioxide 34 mEq/L (23-29); Chloride 103 mEq/L (98-107); Globulin 2.7 g/dL (2.4-3.5); Glucose 96 mg/dL (70-105); Osmolality,Calculated 293 (280-300); Sodium 142 mEq/L (136-145); Total Protein 6.6 g/dL (6.4-8.9); Troponin I < 0.03 ng/mL (< 0.04); eGFR For African Americans > 60 (> 60); eGFR For Non-African Americans > 60 (> 60)
[2021-07-23 16:45] LABS: Hypochromasia Present (Not Present); Platelet Estimate Normal (Normal)
[2021-07-23 17:01] LABS: Amphetamine Screen,Urine Negative ng/mL (Cutoff=1000); Barbiturate Screen,Urine Negative ng/mL (Cutoff=200); Benzodiazepines Screen,Urine Positive ng/mL (Cutoff=200); Cannabinoid Screen,Urine Negative ng/mL (Cutoff = 50); Cocaine Screen,Urine Negative ng/mL (Cutoff= 300); Opiate Screen,Urine Negative ng/mL (Cutoff=300); Phencyclidine Screen,Urine Negative ng/mL (Cutoff=25)
[2021-07-23 17:15] LABS: Influenza A PCR Negative (Negative); Influenza B PCR Negative (Negative); Resp. Syncytial Virus PCR Negative (Negative); SARS-CoV-2 by PCR (In House) Negative (Negative)
[2021-07-23 18:44] LABS: ABG Base Excess 5 mEq/L (-2 to 3); ABG Chloride 105 mEq/L (98-107); ABG Glucose 97 mg/dL (60-95); ABG HCO3 34 mEq/L (21-27); ABG Ionized Calcium 1.29 mmol/L (1.15-1.35); ABG Oxygen Saturation 88 % (95-98); ABG PCO2 71 mmHg (35-45); ABG PH 7.28 pH Units (7.32-7.45); ABG PO2 65 mmHg (85-104); ABG TCO2 36 mEq/L (20-26)
[2021-07-23] MEDS ORDERED: Furosemide 60 MG in 0.9 % Sodium Chloride 50 ML IV ONE (19:07)
[2021-07-23] MEDS ORDERED: methylPREDNISolone 125 MG/2 ML VIAL IVP ONE (19:08)
[2021-07-23] MEDS ORDERED: Ondansetron 4 MG/2 ML VIAL IVP PRN (19:53)
[2021-07-23] MEDS ORDERED: Naloxone 0.4 MG/ML INJ IVP PRN (19:53)
[2021-07-23] MEDS: Azithromycin 500 MG in 0.9 % Sodium Chloride 250 ML IVPB SCH (21:16)
[2021-07-23] MEDS ORDERED: *HR* Metoprolol 5 MG/5 ML VIAL IVP PRN (23:24)
[2021-07-23] MEDS: MethylPREDNISolone 40 MG/ML VIAL IVP SCH (23:31)
[2021-07-23] MEDS: Ipratropium/Albuterol Neb 3 ML IH SCH (23:37)
[2021-07-24] MEDS ORDERED: *HR* Metoprolol 5 MG/5 ML VIAL IVP ONE ×2 (00:52→04:04)
[2021-07-24] MEDS: *HR* OxyCODONE/APAP 10/325 TABLET PO PRN ×4 (01:04→23:05)
[2021-07-24] MEDS ORDERED: *HR* Metoprolol 5 MG/5 ML VIAL IVP PRN (01:55)
[2021-07-24 02:19] LABS: Hematocrit 37.3 % (35.3-44.9); Hemoglobin 10.5 g/dL (11.5-15.4); Mean Corpuscular HGB Conc 28.2 g/dL (31.6-35.5); Mean Corpuscular Hemoglobin 23.6 pg (28.0-33.3); Mean Platelet Volume 9.9 fL (9.4-12.4); Platelet Count 172 K/mcL (140-400); Red Blood Count 4.44 M/mcL (3.82-4.97); Red Cell Distribution Width 15.5 % (11.5-14.5)
[2021-07-24 02:40] LABS: BUN/Creatinine Ratio 14 (6-26); Blood Urea Nitrogen 9 mg/dL (6-20); Calcium 8.9 mg/dL (8.6-10.3); Carbon Dioxide 34 mEq/L (23-29); Chloride 101 mEq/L (98-107); Glucose 163 mg/dL (70-105); Osmolality,Calculated 292 (280-300); Potassium 3.6 mEq/L (3.5-5.1); Sodium 140 mEq/L (136-145); eGFR For African Americans > 60 (> 60); eGFR For Non-African Americans > 60 (> 60)
[2021-07-24] MEDS: Ipratropium/Albuterol Neb 3 ML IH SCH ×6 (03:33→23:55)
[2021-07-24] MEDS: MethylPREDNISolone 40 MG/ML VIAL IVP SCH ×3 (05:21→17:41)
[2021-07-24] MEDS ORDERED: hydrOXYzine pamoate 25 MG CAPSULE PO PRN (07:40)
[2021-07-24] MEDS: Budesonide/Formoterol 160/4.5 1 PUFF INH IH SCH ×2 (08:05→20:01)
[2021-07-24] MEDS: lamoTRIgine 100 MG TABLET PO SCH (08:06)
[2021-07-24] MEDS: Furosemide 40 MG/4 ML VIAL IVP SCH ×2 (08:06→20:24)
[2021-07-24] MEDS: Metoprolol XL (24 HR) Succ 50 MG TAB.ER.24H PO SCH ×2 (08:06→20:24)
[2021-07-24] MEDS: Apixaban 5 MG TABLET PO SCH ×2 (08:07→20:24)
[2021-07-24] MEDS: diazePAM 5 MG TABLET PO SCH ×2 (08:07→14:19)
[2021-07-24] MEDS: Azithromycin 500 MG in 0.9 % Sodium Chloride 250 ML IVPB SCH (20:27)
[2021-07-24] MEDS: Melatonin 3 MG TABLET PO PRN (23:05)
[2021-07-25] MEDS: diazePAM 5 MG TABLET PO SCH ×4 (00:24→20:07)
[2021-07-25] MEDS: Ipratropium/Albuterol Neb 3 ML IH SCH ×6 (03:44→23:49)
[2021-07-25] MEDS: MethylPREDNISolone 40 MG/ML VIAL IVP SCH ×2 (05:32→18:12)
[2021-07-25] MEDS: *HR* OxyCODONE/APAP 10/325 TABLET PO PRN ×3 (06:09→20:41)
[2021-07-25 06:11] LABS: BUN/Creatinine Ratio 24 (6-26); Blood Urea Nitrogen 16 mg/dL (6-20); Calcium 8.9 mg/dL (8.6-10.3); Carbon Dioxide 39 mEq/L (23-29); Chloride 100 mEq/L (98-107); Glucose 119 mg/dL (70-105); Osmolality,Calculated 294 (280-300); Phosphorous 3.8 mg/dL (2.7-4.5); Potassium 3.9 mEq/L (3.5-5.1); Sodium 141 mEq/L (136-145); eGFR For African Americans > 60 (> 60); eGFR For Non-African Americans > 60 (> 60)
[2021-07-25] MEDS: Budesonide/Formoterol 160/4.5 1 PUFF INH IH SCH ×2 (07:30→19:50)
[2021-07-25] MEDS: lamoTRIgine 100 MG TABLET PO SCH (08:28)
[2021-07-25] MEDS: Furosemide 40 MG/4 ML VIAL IVP SCH ×2 (08:28→20:06)
[2021-07-25] MEDS: Apixaban 5 MG TABLET PO SCH ×2 (08:29→20:06)
[2021-07-25] MEDS: Metoprolol XL (24 HR) Succ 50 MG TAB.ER.24H PO SCH ×2 (08:29→20:06)
[2021-07-25 15:32] LABS: ABG Base Excess 15 mEq/L (-2 to 3); ABG HCO3 45 mEq/L (21-27); ABG Oxygen Saturation 86 % (95-98); ABG PCO2 84 mmHg (35-45); ABG PH 7.33 pH Units (7.32-7.45); ABG PO2 58 mmHg (85-104); ABG TCO2 47 mEq/L (20-26)
[2021-07-25] MEDS: Azithromycin 500 MG in 0.9 % Sodium Chloride 250 ML IVPB SCH (20:06)
[2021-07-25] MEDS: Melatonin 3 MG TABLET PO PRN (20:48)
[2021-07-26] MEDS: Ipratropium/Albuterol Neb 3 ML IH SCH ×5 (03:49→19:40)
[2021-07-26 04:03] LABS: ABG Base Excess 13 mEq/L (-2 to 3); ABG HCO3 43 mEq/L (21-27); ABG Oxygen Saturation 93 % (95-98); ABG PCO2 86 mmHg (35-45); ABG PH 7.31 pH Units (7.32-7.45); ABG PO2 79 mmHg (85-104); ABG TCO2 46 mEq/L (20-26)
[2021-07-26 04:47] LABS: Basophils % 0.2 %; Hematocrit 37.4 % (35.3-44.9); Hemoglobin 10.1 g/dL (11.5-15.4); Immature Granulocytes % 0.5 % (0-4); Lymphocytes % 16.6 %; Mean Corpuscular Hemoglobin 23.4 pg (28.0-33.3); Mean Corpuscular Volume 86.6 fL (83.0-100.0); Mean Platelet Volume 10.1 fL (9.4-12.4); Monocytes # 0.3 K/mcL (0.0-1.3); Monocytes % 5.7 %; Neutrophils # 4.6 K/mcL (1.6-8.9); Platelet Count 162 K/mcL (140-400); Red Blood Count 4.32 M/mcL (3.82-4.97); Red Cell Distribution Width 15.4 % (11.5-14.5)
[2021-07-26 05:09] LABS: BUN/Creatinine Ratio 28 (6-26); Blood Urea Nitrogen 21 mg/dL (6-20); Calcium 8.8 mg/dL (8.6-10.3); Carbon Dioxide 42 mEq/L (23-29); Chloride 97 mEq/L (98-107); Glucose 109 mg/dL (70-105); Magnesium 2.1 mg/dL (1.6-2.6); Osmolality,Calculated 298 (280-300); Phosphorous 3.6 mg/dL (2.7-4.5); Potassium 3.9 mEq/L (3.5-5.1); Sodium 142 mEq/L (136-145); eGFR For African Americans > 60 (> 60); eGFR For Non-African Americans > 60 (> 60)
[2021-07-26 05:18] LABS: Hypochromasia Present (Not Present); Platelet Estimate Normal (Normal)
[2021-07-26] MEDS: MethylPREDNISolone 40 MG/ML VIAL IVP SCH ×2 (05:31→16:48)
[2021-07-26] MEDS: Budesonide/Formoterol 160/4.5 1 PUFF INH IH SCH ×2 (07:38→19:40)
[2021-07-26] MEDS: lamoTRIgine 100 MG TABLET PO SCH (07:45)
[2021-07-26] MEDS: Apixaban 5 MG TABLET PO SCH ×2 (07:45→19:40)
[2021-07-26] MEDS: Furosemide 20 MG TABLET PO SCH ×2 (07:46→16:47)
[2021-07-26] MEDS: *HR* OxyCODONE/APAP 10/325 TABLET PO PRN ×2 (07:46→19:40)
[2021-07-26] MEDS: Metoprolol XL (24 HR) Succ 50 MG TAB.ER.24H PO SCH ×2 (07:46→19:40)
[2021-07-26] MEDS: diazePAM 5 MG TABLET PO SCH ×3 (07:46→19:41)
[2021-07-26] MEDS ORDERED: Azithromycin 250 MG TABLET PO SCH (09:00)
[2021-07-26 12:24] VITALS: PULSE 77; TEMP 98.6
[2021-07-26 16:11] VITALS: O2SAT 95
[2021-07-26 17:07] VITALS: BP 151/110
== END 2021-07-26 19:55 | disposition home or self-care (01) | DRG 140 ==
LOC: 2ANU 15:16 → EMEROOARM 15:16 → SUATTDRO 19:45 → 2ANU 20:30
PROVIDERS: ADMIT Internal Medicine; ATTEND Internal Medicine

== ENCOUNTER 2021-08-10 12:35 | Inpatient (IN) ==
[2021-08-10] MEDS ORDERED: levoFLOXacin 750 MG/150 ML 750 MG/150 ML BAG IVPB ONE (12:57)
[2021-08-10] MEDS ORDERED: methylPREDNISolone 125 MG/2 ML VIAL IVP ONE (12:58)
[2021-08-10] MEDS ORDERED: Ipratropium/Albuterol Neb 3 ML ONE (12:58)
[2021-08-10] MEDS: Ipratropium/Albuterol Neb 3 ML IH ONE ×2 (13:01→13:11)
[2021-08-10 13:22] LABS: Hematocrit 45.4 % (35.3-44.9); Hemoglobin 12.7 g/dL (11.5-15.4); Mean Corpuscular Hemoglobin 23.6 pg (28.0-33.3); Mean Corpuscular Volume 84.2 fL (83.0-100.0); Mean Platelet Volume 9.8 fL (9.4-12.4); Platelet Count 170 K/mcL (140-400); Red Blood Count 5.39 M/mcL (3.82-4.97); Red Cell Distribution Width 15.5 % (11.5-14.5); White Blood Count 6.7 K/mcL (4.3-11.1)
[2021-08-10 13:27] LABS: INR 1.5; Prothrombin Time 16.4 Seconds (9.4-12.1)
[2021-08-10 13:36] LABS: Alanine Aminotransferase 15 Units/L (7-52); Albumin 4.2 g/dL (3.5-5.7); Albumin/Globulin Ratio 1.3 (1.1-2.2); Alkaline Phosphatase 84 Units/L (34-104); Aspartate Amino Transferase 13 Units/L (13-39); BUN/Creatinine Ratio 23 (6-26); Bilirubin,Total 0.5 mg/dL (0.3-1.0); Blood Urea Nitrogen 15 mg/dL (6-20); Calcium 9.6 mg/dL (8.6-10.3); Carbon Dioxide 37 mEq/L (23-29); Chloride 98 mEq/L (98-107); Globulin 3.2 g/dL (2.4-3.5); Glucose 137 mg/dL (70-105); Osmolality,Calculated 285 (280-300); Potassium 3.5 mEq/L (3.5-5.1); Sodium 136 mEq/L (136-145); Total Protein 7.4 g/dL (6.4-8.9); Troponin I < 0.03 ng/mL (< 0.04); eGFR For African Americans > 60 (> 60); eGFR For Non-African Americans > 60 (> 60)
[2021-08-10 13:48] LABS: ABG Base Excess 10 mEq/L (-2 to 3); ABG HCO3 43 mEq/L (21-27); ABG Oxygen Saturation 86 % (95-98); ABG PCO2 110 mmHg (35-45); ABG PO2 67 mmHg (85-104); ABG TCO2 46 mEq/L (20-26)
[2021-08-10 14:15] LABS: Lymphocytes # 0.9 K/mcL (0.6-4.6); Monocytes # 0.4 K/mcL (0.0-1.3); Neutrophils # 5.4 K/mcL (1.6-8.9); Platelet Estimate Normal (Normal); Reactive Lymphocytes Present (Not Present)
[2021-08-10 14:34] LABS: Influenza A PCR Negative (Negative); Influenza B PCR Negative (Negative); Resp. Syncytial Virus PCR Negative (Negative)
[2021-08-10] MEDS ORDERED: Ondansetron 4 MG/2 ML VIAL IVP PRN (14:47)
[2021-08-10] MEDS ORDERED: Naloxone 0.4 MG/ML INJ IVP PRN (14:47)
[2021-08-10 15:20] LABS: SARS-CoV-2 by PCR (In House) Negative (Negative)
[2021-08-10] MEDS: Azithromycin 500 MG in 0.9 % Sodium Chloride 250 ML IVPB SCH (15:58)
[2021-08-10 16:23] LABS: ABG Base Excess 9 mEq/L (-2 to 3); ABG HCO3 38 mEq/L (21-27); ABG Oxygen Saturation 98 % (95-98); ABG PCO2 76 mmHg (35-45); ABG PH 7.31 pH Units (7.32-7.45); ABG PO2 112 mmHg (85-104); ABG TCO2 41 mEq/L (20-26)
[2021-08-10] MEDS: Albuterol 2.5 MG/3 ML NEBULIZER IH SCH ×2 (17:27→22:16)
[2021-08-10] MEDS: *HR* OxyCODONE/APAP 10/325 TABLET PO SCH ×2 (18:05→20:13)
[2021-08-10] MEDS: Piperacillin/Tazobactam 3.375 GM in 0.9 % Sodium Chloride Mini Bag 100 ML IVPB SCH (18:05)
[2021-08-10] MEDS: Furosemide 40 MG/4 ML VIAL IVP SCH (20:13)
[2021-08-10] MEDS: MethylPREDNISolone 40 MG/ML VIAL IVP SCH (20:13)
[2021-08-10] MEDS: Apixaban 5 MG TABLET PO SCH (20:14)
[2021-08-10] MEDS ORDERED: Furosemide 40 MG TABLET PO SCH (21:00)
[2021-08-10] MEDS: Budesonide/Formoterol 160/4.5 1 PUFF INH IH SCH (22:54)
[2021-08-11] MEDS: Albuterol 2.5 MG/3 ML NEBULIZER IH SCH ×7 (00:37→23:52)
[2021-08-11] MEDS: *HR* OxyCODONE/APAP 10/325 TABLET PO PRN ×3 (01:14→23:33)
[2021-08-11] MEDS: Piperacillin/Tazobactam 3.375 GM in 0.9 % Sodium Chloride Mini Bag 100 ML IVPB SCH ×4 (01:14→23:07)
[2021-08-11 02:22] LABS: Hematocrit 37.1 % (35.3-44.9); Hemoglobin 10.5 g/dL (11.5-15.4); Immature Granulocytes % 0.2 % (0-4); Lymphocytes # 0.5 K/mcL (0.6-4.6); Lymphocytes % 10.7 %; Mean Corpuscular HGB Conc 28.3 g/dL (31.6-35.5); Mean Corpuscular Hemoglobin 24.2 pg (28.0-33.3); Mean Corpuscular Volume 85.7 fL (83.0-100.0); Mean Platelet Volume 10.3 fL (9.4-12.4); Monocytes # 0.1 K/mcL (0.0-1.3); Monocytes % 2.8 %; Neutrophils # 3.7 K/mcL (1.6-8.9); Platelet Count 146 K/mcL (140-400); Red Blood Count 4.33 M/mcL (3.82-4.97); Red Cell Distribution Width 15.4 % (11.5-14.5); Segmented Neutrophils % 86.3 %; White Blood Count 4.3 K/mcL (4.3-11.1)
[2021-08-11 02:31] LABS: VBG HCO3 39 mEq/L (21-27); VBG PCO2 94 mmHg (41-51); VBG PH 7.23 pH Units (7.32-7.42); VBG PO2 98 mmHg (25-50)
[2021-08-11 02:42] LABS: BUN/Creatinine Ratio 29 (6-26); Blood Urea Nitrogen 19 mg/dL (6-20); Calcium 8.3 mg/dL (8.6-10.3); Carbon Dioxide 36 mEq/L (23-29); Chloride 100 mEq/L (98-107); Glucose 133 mg/dL (70-105); Osmolality,Calculated 296 (280-300); Potassium 3.6 mEq/L (3.5-5.1); Sodium 141 mEq/L (136-145); eGFR For African Americans > 60 (> 60); eGFR For Non-African Americans > 60 (> 60)
[2021-08-11] MEDS ORDERED: Benzonatate 100 MG CAPSULE PO PRN (03:03)
[2021-08-11] MEDS: GuaiFENesin Liq 200 MG/10 ML UDC PO PRN ×2 (04:04→20:04)
[2021-08-11] MEDS: Budesonide/Formoterol 160/4.5 1 PUFF INH IH SCH ×2 (07:46→19:49)
[2021-08-11] MEDS: MethylPREDNISolone 40 MG/ML VIAL IVP SCH ×2 (07:52→20:04)
[2021-08-11] MEDS: Famotidine 20 MG TABLET PO SCH (07:53)
[2021-08-11] MEDS: Furosemide 40 MG/4 ML VIAL IVP SCH ×2 (07:53→20:04)
[2021-08-11] MEDS: lamoTRIgine 100 MG TABLET PO SCH (07:54)
[2021-08-11] MEDS: Folic Acid 1 MG TABLET PO SCH (07:54)
[2021-08-11] MEDS: Apixaban 5 MG TABLET PO SCH ×2 (07:54→20:04)
[2021-08-11] MEDS: Metoprolol XL (24 HR) Succ 25 MG TAB.ER.24H PO SCH (07:54)
[2021-08-11] MEDS: DilTIAZem CD (24hr) 180 MG CAP.ER.24H PO SCH (07:55)
[2021-08-11] MEDS: Azithromycin 500 MG in 0.9 % Sodium Chloride 250 ML IVPB SCH (14:23)
[2021-08-11] MEDS: Nystatin POWDER 30 GM BOTTLE TP SCH ×2 (14:26→20:05)
[2021-08-12 02:35] LABS: Basophils % 0.5 %; Hematocrit 38.4 % (35.3-44.9); Hemoglobin 10.5 g/dL (11.5-15.4); Immature Granulocytes % 0.5 % (0-4); Lymphocytes # 0.6 K/mcL (0.6-4.6); Lymphocytes % 15.1 %; Mean Corpuscular HGB Conc 27.3 g/dL (31.6-35.5); Mean Corpuscular Hemoglobin 24.1 pg (28.0-33.3); Mean Corpuscular Volume 88.3 fL (83.0-100.0); Mean Platelet Volume 10.1 fL (9.4-12.4); Monocytes # 0.2 K/mcL (0.0-1.3); Monocytes % 3.9 %; Neutrophils # 3.3 K/mcL (1.6-8.9); Platelet Count 147 K/mcL (140-400); Red Blood Count 4.35 M/mcL (3.82-4.97); Red Cell Distribution Width 15.3 % (11.5-14.5); White Blood Count 4.1 K/mcL (4.3-11.1)
[2021-08-12 02:53] LABS: Blood Urea Nitrogen 29 mg/dL (6-20); Calcium 8.9 mg/dL (8.6-10.3); Carbon Dioxide 36 mEq/L (23-29); Chloride 97 mEq/L (98-107); Glucose 142 mg/dL (70-105); Osmolality,Calculated 296 (280-300); Potassium 3.9 mEq/L (3.5-5.1); Sodium 139 mEq/L (136-145)
[2021-08-12 03:29] LABS: Hypochromasia Present (Not Present); Platelet Estimate Normal (Normal); Reactive Lymphocytes Present (Not Present)
[2021-08-12 03:32] LABS: VBG HCO3 34 mEq/L (21-27); VBG PCO2 63 mmHg (41-51); VBG PH 7.34 pH Units (7.32-7.42); VBG PO2 100 mmHg (25-50)
[2021-08-12 03:46] LABS: BUN/Creatinine Ratio 30 (6-26); eGFR For African Americans > 60 (> 60); eGFR For Non-African Americans > 60 (> 60)
[2021-08-12] MEDS: Albuterol 2.5 MG/3 ML NEBULIZER IH SCH ×6 (03:55→23:36)
[2021-08-12] MEDS: Budesonide/Formoterol 160/4.5 1 PUFF INH IH SCH ×2 (07:38→20:35)
[2021-08-12] MEDS: lamoTRIgine 100 MG TABLET PO SCH (08:05)
[2021-08-12] MEDS: DilTIAZem CD (24hr) 180 MG CAP.ER.24H PO SCH (08:05)
[2021-08-12] MEDS: Piperacillin/Tazobactam 3.375 GM in 0.9 % Sodium Chloride Mini Bag 100 ML IVPB SCH ×2 (08:06→16:24)
[2021-08-12] MEDS: Apixaban 5 MG TABLET PO SCH ×2 (08:06→21:40)
[2021-08-12] MEDS: Metoprolol XL (24 HR) Succ 25 MG TAB.ER.24H PO SCH (08:06)
[2021-08-12] MEDS: Folic Acid 1 MG TABLET PO SCH (08:06)
[2021-08-12] MEDS: Famotidine 20 MG TABLET PO SCH (08:06)
[2021-08-12] MEDS: *HR* OxyCODONE/APAP 10/325 TABLET PO PRN (08:17)
[2021-08-12] MEDS: Furosemide 40 MG/4 ML VIAL IVP SCH ×2 (08:40→21:41)
[2021-08-12] MEDS: MethylPREDNISolone 40 MG/ML VIAL IVP SCH ×2 (08:42→21:40)
[2021-08-12] MEDS: Nystatin POWDER 30 GM BOTTLE TP SCH ×2 (09:14→21:41)
[2021-08-12] MEDS: Azithromycin 500 MG in 0.9 % Sodium Chloride 250 ML IVPB SCH (14:48)
[2021-08-13] MEDS: Piperacillin/Tazobactam 3.375 GM in 0.9 % Sodium Chloride Mini Bag 100 ML IVPB SCH ×3 (00:18→15:46)
[2021-08-13] MEDS: Albuterol 2.5 MG/3 ML NEBULIZER IH SCH ×6 (03:53→23:48)
[2021-08-13] MEDS: Budesonide/Formoterol 160/4.5 1 PUFF INH IH SCH ×2 (08:49→19:32)
[2021-08-13] MEDS: Apixaban 5 MG TABLET PO SCH ×2 (09:27→20:23)
[2021-08-13] MEDS: lamoTRIgine 100 MG TABLET PO SCH (09:28)
[2021-08-13] MEDS: Famotidine 20 MG TABLET PO SCH (09:28)
[2021-08-13] MEDS: MethylPREDNISolone 40 MG/ML VIAL IVP SCH ×2 (09:28→20:23)
[2021-08-13] MEDS: Furosemide 40 MG/4 ML VIAL IVP SCH ×2 (09:28→20:24)
[2021-08-13] MEDS: Folic Acid 1 MG TABLET PO SCH (09:28)
[2021-08-13] MEDS: DilTIAZem CD (24hr) 180 MG CAP.ER.24H PO SCH (09:28)
[2021-08-13] MEDS: Metoprolol XL (24 HR) Succ 25 MG TAB.ER.24H PO SCH (09:28)
[2021-08-13 09:31] LABS: White Blood Count 2.9 K/mcL (4.3-11.1)
[2021-08-13 09:33] LABS: Hemoglobin 10.8 g/dL (11.5-15.4); Immature Platelets 5.5 % (1.1-6.1); Mean Corpuscular HGB Conc 27.7 g/dL (31.6-35.5); Mean Corpuscular Hemoglobin 24.1 pg (28.0-33.3); Mean Corpuscular Volume 87.1 fL (83.0-100.0); Mean Platelet Volume 10.2 fL (9.4-12.4); Red Blood Count 4.48 M/mcL (3.82-4.97); Red Cell Distribution Width 15.3 % (11.5-14.5)
[2021-08-13 10:00] LABS: BUN/Creatinine Ratio 44 (6-26); Blood Urea Nitrogen 28 mg/dL (6-20); Calcium 9.4 mg/dL (8.6-10.3); Carbon Dioxide 42 mEq/L (23-29); Chloride 98 mEq/L (98-107); Glucose 122 mg/dL (70-105); Osmolality,Calculated 299 (280-300); Potassium 3.9 mEq/L (3.5-5.1); Sodium 141 mEq/L (136-145); eGFR For African Americans > 60 (> 60); eGFR For Non-African Americans > 60 (> 60)
[2021-08-13] MEDS: Nystatin POWDER 30 GM BOTTLE TP SCH ×2 (11:25→20:37)
[2021-08-13] MEDS: Azithromycin 500 MG in 0.9 % Sodium Chloride 250 ML IVPB SCH (14:15)
[2021-08-14] MEDS ORDERED: *HR* Labetalol 20 MG/4 ML SYRINGE IVP ONE (01:13)
[2021-08-14] MEDS: Piperacillin/Tazobactam 3.375 GM in 0.9 % Sodium Chloride Mini Bag 100 ML IVPB SCH ×3 (01:13→17:09)
[2021-08-14] MEDS: Albuterol 2.5 MG/3 ML NEBULIZER IH SCH ×6 (03:19→23:12)
[2021-08-14 05:54] LABS: Basophils % 0.3 %; Hematocrit 40.8 % (35.3-44.9); Hemoglobin 11.4 g/dL (11.5-15.4); Immature Granulocytes % 1.7 % (0-4); Immature Platelets 3.9 % (1.1-6.1); Lymphocytes # 0.4 K/mcL (0.6-4.6); Lymphocytes % 13.3 %; Mean Corpuscular HGB Conc 27.9 g/dL (31.6-35.5); Mean Corpuscular Hemoglobin 23.4 pg (28.0-33.3); Mean Corpuscular Volume 83.6 fL (83.0-100.0); Mean Platelet Volume 9.3 fL (9.4-12.4); Monocytes # 0.2 K/mcL (0.0-1.3); Neutrophils # 2.4 K/mcL (1.6-8.9); Platelet Count 138 K/mcL (140-400); Red Blood Count 4.88 M/mcL (3.82-4.97); Red Cell Distribution Width 15.2 % (11.5-14.5); Segmented Neutrophils % 78.7 %
[2021-08-14 06:01] LABS: VBG HCO3 47 mEq/L (21-27); VBG PCO2 78 mmHg (41-51); VBG PH 7.39 pH Units (7.32-7.42); VBG PO2 46 mmHg (25-50)
[2021-08-14 06:10] LABS: Platelet Estimate Normal (Normal)
[2021-08-14 06:16] LABS: BUN/Creatinine Ratio 34 (6-26); Blood Urea Nitrogen 22 mg/dL (6-20); Calcium 9.3 mg/dL (8.6-10.3); Carbon Dioxide > 45 mEq/L (23-29); Chloride 95 mEq/L (98-107); Glucose 138 mg/dL (70-105); Osmolality,Calculated 290 (280-300); Potassium 3.2 mEq/L (3.5-5.1); Sodium 137 mEq/L (136-145); eGFR For African Americans > 60 (> 60); eGFR For Non-African Americans > 60 (> 60)
[2021-08-14] MEDS: Budesonide/Formoterol 160/4.5 1 PUFF INH IH SCH ×2 (07:38→19:41)
[2021-08-14] MEDS: lamoTRIgine 100 MG TABLET PO SCH (07:54)
[2021-08-14] MEDS: DilTIAZem CD (24hr) 180 MG CAP.ER.24H PO SCH (07:57)
[2021-08-14] MEDS: Apixaban 5 MG TABLET PO SCH ×2 (07:57→20:40)
[2021-08-14] MEDS: Metoprolol XL (24 HR) Succ 25 MG TAB.ER.24H PO SCH (07:57)
[2021-08-14] MEDS: Folic Acid 1 MG TABLET PO SCH (07:57)
[2021-08-14] MEDS: Famotidine 20 MG TABLET PO SCH (07:57)
[2021-08-14] MEDS: Furosemide 40 MG TABLET PO SCH ×2 (07:57→17:09)
[2021-08-14] MEDS: MethylPREDNISolone 40 MG/ML VIAL IVP SCH ×2 (07:58→20:42)
[2021-08-14] MEDS: Nystatin POWDER 30 GM BOTTLE TP SCH ×2 (07:58→20:44)
[2021-08-14] MEDS: *HR* OxyCODONE/APAP 10/325 TABLET PO PRN (22:56)
[2021-08-15] MEDS: Piperacillin/Tazobactam 3.375 GM in 0.9 % Sodium Chloride Mini Bag 100 ML IVPB SCH ×3 (00:05→18:06)
[2021-08-15] MEDS: Albuterol 2.5 MG/3 ML NEBULIZER IH SCH ×6 (03:14→23:35)
[2021-08-15 06:55] LABS: Mean Corpuscular Volume 82.6 fL (83.0-100.0)
[2021-08-15 06:57] LABS: Hematocrit 43.2 % (35.3-44.9); Hemoglobin 12.2 g/dL (11.5-15.4); Immature Platelets 3.7 % (1.1-6.1); Mean Corpuscular HGB Conc 28.2 g/dL (31.6-35.5); Mean Corpuscular Hemoglobin 23.3 pg (28.0-33.3); Mean Platelet Volume 9.9 fL (9.4-12.4); Red Blood Count 5.23 M/mcL (3.82-4.97); Red Cell Distribution Width 15.7 % (11.5-14.5); White Blood Count 3.1 K/mcL (4.3-11.1)
[2021-08-15 06:58] LABS: VBG HCO3 45 mEq/L (21-27); VBG PCO2 72 mmHg (41-51); VBG PH 7.41 pH Units (7.32-7.42); VBG PO2 38 mmHg (25-50)
[2021-08-15 07:21] LABS: BUN/Creatinine Ratio 32 (6-26); Blood Urea Nitrogen 21 mg/dL (6-20); Calcium 9.2 mg/dL (8.6-10.3); Carbon Dioxide > 45 mEq/L (23-29); Chloride 93 mEq/L (98-107); Glucose 130 mg/dL (70-105); Osmolality,Calculated 299 (280-300); Potassium 3.6 mEq/L (3.5-5.1); Sodium 142 mEq/L (136-145); eGFR For African Americans > 60 (> 60); eGFR For Non-African Americans > 60 (> 60)
[2021-08-15] MEDS: Budesonide/Formoterol 160/4.5 1 PUFF INH IH SCH ×2 (07:49→19:49)
[2021-08-15] MEDS: Nystatin POWDER 30 GM BOTTLE TP SCH ×2 (10:38→20:29)
[2021-08-15] MEDS: MethylPREDNISolone 40 MG/ML VIAL IVP SCH (10:38)
[2021-08-15] MEDS: lamoTRIgine 100 MG TABLET PO SCH (10:39)
[2021-08-15] MEDS: DilTIAZem CD (24hr) 180 MG CAP.ER.24H PO SCH (10:39)
[2021-08-15] MEDS: Furosemide 40 MG TABLET PO SCH ×2 (10:39→16:34)
[2021-08-15] MEDS: Famotidine 20 MG TABLET PO SCH (10:39)
[2021-08-15] MEDS: Folic Acid 1 MG TABLET PO SCH (10:39)
[2021-08-15] MEDS: Apixaban 5 MG TABLET PO SCH ×2 (10:39→20:28)
[2021-08-15] MEDS: Metoprolol XL (24 HR) Succ 25 MG TAB.ER.24H PO SCH (10:39)
[2021-08-15] MEDS: *HR* OxyCODONE/APAP 10/325 TABLET PO PRN (20:38)
[2021-08-16] MEDS: Piperacillin/Tazobactam 3.375 GM in 0.9 % Sodium Chloride Mini Bag 100 ML IVPB SCH ×2 (01:40→07:35)
[2021-08-16] MEDS: Albuterol 2.5 MG/3 ML NEBULIZER IH SCH ×2 (03:48→07:35)
[2021-08-16] MEDS: lamoTRIgine 100 MG TABLET PO SCH (07:34)
[2021-08-16] MEDS: Apixaban 5 MG TABLET PO SCH (07:34)
[2021-08-16] MEDS: Metoprolol XL (24 HR) Succ 25 MG TAB.ER.24H PO SCH (07:35)
[2021-08-16] MEDS: Famotidine 20 MG TABLET PO SCH (07:35)
[2021-08-16] MEDS: Folic Acid 1 MG TABLET PO SCH (07:35)
[2021-08-16] MEDS: Furosemide 40 MG TABLET PO SCH (07:35)
[2021-08-16] MEDS: Budesonide/Formoterol 160/4.5 1 PUFF INH IH SCH (07:35)
[2021-08-16] MEDS: DilTIAZem CD (24hr) 180 MG CAP.ER.24H PO SCH (07:35)
[2021-08-16] MEDS: Nystatin POWDER 30 GM BOTTLE TP SCH (07:36)
[2021-08-16 07:58] VITALS: BP 131/80; PULSE 79; TEMP 96.8; O2SAT 98
[2021-08-16] MEDS ORDERED: predniSONE 20 MG TABLET PO SCH (09:00)
[2021-08-16] MEDS: *HR* OxyCODONE/APAP 10/325 TABLET PO PRN (09:11)
[2021-08-16] MEDS ORDERED: Albuterol 2.5 MG/3 ML NEBULIZER IH PRN (11:10)
== END 2021-08-16 16:26 | disposition home health service (06) | DRG 720 ==
LOC: EMEROOARM 12:35 → 3NENU 15:44 → SUATTDRO 15:44 → 3NENU 16:53
PROVIDERS: ADMIT Family Medicine; ATTEND Internal Medicine